=== PATIENT | female | born 1945 | race Caucasian/White ===

== ENCOUNTER → 2016-08-08 | Outpatient (CLI) | payer OTHER ==
[2014-08-13 15:52] VITALS: BP 138/66
--- NOTE | 2016-08-08 14:32 | VAS ---
HISTORY: Dizziness Study: Carotid sonogram Comparison: None Technique: Multiple gonzalez scale and color flow Doppler images of the right and left carotid arterial system were obtained. The vertebral arterial system was evaluated as well. Findings: Normal color flow Doppler is seen throughout the right and left carotid arterial system. No hemodyn amically significant stenosis is seen based on velocity criteria. The right and left vertebral bella tylor demonstrate antegrade flow. IMPRESSION: 1. No hemodynamically significant stenosis. Reported By:
== END ==
LOC: RAD 09:49
PROVIDERS: ATTEND Nurse Practitioner Family
DX: R42 Dizziness and giddiness (principal)
CPT/HCPCS: 93880

== ENCOUNTER → 2017-09-06 | Outpatient (CLI) | payer OTHER ==
[2014-08-13 15:52] VITALS: BP 138/66
--- NOTE | 2017-09-06 12:20 | CT ---
Indication: Preop for ankle and foot surgical reconstruction. Exam: CT scan left foot and ankle without contrast. Technique: Axial spiral images were obtained from the lower leg through the midfoot without contrast and reconstructed at 2 mm intervals with coronal and sagittal MPGR reconstructions. Automated does [email or web address] ntrol was utilized. Findings: There is severe narrowing of the ankle mortise which is more prominent laterally with mild widening of the joint space medially and minimal medial subluxation of the talus. There is mild bony deformity with subchondral areas of sclerosis and lucency along the distal tibia and fibula . There i s partial bony fusion of the tib-fib joint inferiorly. No acute fracture or dislocation is seen. Ther e is a small will corticated calcifications seen just lateral to the dome of the talus measuring up t o 6 mm. There is subchondral lucency and irregularity along the dome of the talus which is more promi nent laterally . There is no acute periosteal reaction. The talus and calcaneus are intact. The visua lized tarsal bones are intact. The bones are osteopenic. The soft tissues are unremarkable. Impression: Mild old posttraumatic deformity of the distal tibia and fibula with extensive subchondral areas of l ucency and sclerosis throughout which is probably due to prior surgery and old healed fractures with no obvious acute bony abnormality seen. Severe osteoarthritic changes along the ankle mortise laterally and mild widening of the joint space medially and mild medial subluxation of dome of the talus suggestive of associated ligamentous instab ility. Subchondral areas of lucency and sclerosis along the dome of the talus which probably represents foundry molder reagan osteonecrosis with no acute fracture. Questionable 6 mm loose body in the joint , chest lateral to the dome of the talus. Severe osteopenia with partial bony fusion of the tib-fib joint inferiorly . Reported By:
--- NOTE | 2017-09-06 13:25 | CT ---
HISTORY: Preop for left foot and ankle reconstruction. Study: CT left foot without contrast Comparison: CT left ankle dated same day. Technique: Multiple axial images of the left foot without administration of IV contrast. Sagittal an d coronal reformats were performed and reviewed. 3D reformats were also performed. Dose reduction bipin hniques including Automated Exposure Control (AEC) and adjustment of mA and kV were utilized. Findings: Diffuse osteopenia. No acute fracture or dislocation. Moderate to severe degenerative changes of the tibial talar joint with associated subchondral cystic formation and intra-articular loose bodies. Pro minent os trigonum. Calcaneal enthesophytes. Mild osteoarthritis of the subtalar joint. Bony fusion i s seen at the tibiofibular joint. The soft tissue structures are unremarkable. IMPRESSION: Chronic findings as above. Reported By:
== END | disposition home or self-care (01) | DRG 554 ==
LOC: RAD 09:47
PROVIDERS: ATTEND Orthopaedic Surgery Foot and Ankle Surgery
DX: M19.172 Post-traumatic osteoarthritis, left ankle and foot (principal); M85.872 Other specified disorders of bone density and structure, left ankle and foot; M19.072 Primary osteoarthritis, left ankle and foot
CPT/HCPCS: 73700

== ENCOUNTER 2019-04-22 15:13 | Inpatient (IN) ==
[2019-04-22 17:28] VITALS: BMI 29.0
[2019-04-22] MEDS ORDERED: TUSSIONEX PENNKINETIC SUSP PO PRN (17:33)
[2019-04-22] MEDS ORDERED: ZOFRAN INJ 4 MG VIAL IVP PRN (17:33)
--- NOTE | 2019-04-22 17:39 | DR.H&P ---
H&P - History & Physical for Day of: H&P Date: 04/22/19 - Chief Complaint Chief Complaint: fever, ccc, sob, wheezing - History of Present Illness History of Present Illness: PTIS 74 WF DIRECT ADMIT FROM DR FARRELL OFFICE WITH BRONCHOPNEUMONIA, FAILED OUTPT THERAPY. PT HAD ROUND OF ZITHROMAX AND LEVAQUIN, 3 IM ROCEPHIN INJECTIONS AND STEROIDS WITHOUT IMPROVEMENT. PT HAS PMH OF OA, GIOVANNI, GERD AND HTN. PT ADMITTED FOR TREATMENT ACUTE RESP ILLNESS. - Past Medical History Past Medical History: Hypertension - Past Surgical History Surgical History: Cholecystectomy, Hysterectomy, Ortho Surgery - Family History Family Medical History: Diabetes Mellitus, Cancer, DC - Social History Does patient currently use any type of tobacco product: Yes Have you used tobacco products in the last 12 months: Yes Type of Tobacco Use: Cigarettes Does any household member use tobacco: No Alcohol Use: Rarely Drug Use: None Prescription drug monitoring program results: PDMP reviewed with concerns identified - Medications Home Medications: No Known Drug Allergies Allergy (Verified 04/22/19 17:24) - Review of Systems Constitutional: Fever, Chills, Weakness, Malaise Eyes: No Symptoms Reported ENT: Nose Congestion Respiratory: Cough, Shortness of Breath, SOB with Excertion, Sputum, Wheezing Cardiovascular: No Symptoms Reported. denies: Edema Gastrointestinal: Nausea, Vomiting Genitourinary: No Symptoms Reported Musculoskeletal: Back Pain Skin: No Symptoms Reported Neurological: No Symptoms Reported, Weakness - Physical Exam Vital Signs: Temperature 97.4 F Pulse Rate [Left Brachial] 81 Respiratory Rate 22 Blood Pressure [Right Arm] 132/61 Blood Pressure [Left Arm] 189/86 Blood Pressure 138/66 O2 Sat by Pulse Oximetry 92 Oriented: Normal Eyes: Normal Ear: Normal Nose: Normal Throat: Normal Respiratory: Diminished Throughout, Rhonchi Throughout Cardiovascular: Normal : Normal Auscultation: Bowel Sounds: Normal Palpation: Normal Tenderness: Normal Skin: Decreased Turgur Musculoskeletal: Back:Thoracic, Back:Lumbar Psychiatric: Anxiety Affect: Anxious Speech Pattern: Clear, Appropriate - Assessment/Plan (1) Bronchopneumonia Status: Acute Plan: ADMIT, PNEUMONIA PROTOCOL. ADMISSION LABS, CBC CMP MAG. FLU AND MYCOPLASMA SWAB. IV LEVAQUIN, BLOOD AND SPUTUM CULTURES ON ADMISSION. GENTLE IV HYDRATION, RESP THERAPY (2) Anxiety Status: Acute (3) Hypertension Status: Chronic - Allergies Allergies/Adverse Reactions: Allergies Allergy/AdvReac Type Severity Reaction Status Date / Time No Known Drug Allergies Allergy Verified 04/22/19 17:24
--- NOTE | 2019-04-22 17:49 | RAD ---
HISTORYCOUGH, POSSIBLE PNEUMONIASTUDYCHEST, PA/LAT ADULTCOMPARISONCoughFINDINGSThe left ventricle is mildly enlarged. The pulmonary vessels are normal. No consolidation or effusion is seen. The bones are intact.IMPRESSIONMild left ventricular enlargement with no acute pulmonary abnormality.Electronically signed by: BO MEHTA (Apr 22, 2019 17:47:39)
[2019-04-22 18:12] LABS: BASOPHILS # (AUTO) 0.1 X10^3/uL (0.0-0.1); BASOPHILS % (AUTO) 0.6 % (0.2-1.0); EOSINOPHILS # (AUTO) 0.2 x10^3/uL (0.0-0.2); EOSINOPHILS % (AUTO) 2.1 % (0.9-2.9); LYMPHOCYTES # (AUTO) 2.8 X10^3/uL (1.3-2.9); LYMPHOCYTES % (AUTO) 25.6 % (21.0-51.0); MEAN CORPUSCULAR HEMOGLOBIN 32.4 pg (27.0-34.0); MEAN CORPUSCULAR HGB CONC 34.1 g/dL (33.0-35.0); MEAN CORPUSCULAR VOLUME 95.1 fL (80.0-100.0); MEAN PLATELET VOLUME 7.4 fL (7.4-11.0); MONOCYTES # (AUTO) 0.8 x10^3/uL (0.3-0.8); MONOCYTES % (AUTO) 7.5 % (0.0-13.0); NEUTROPHILS # (AUTO) 6.9 x10^3/uL (2.2-4.8); NEUTROPHILS % (AUTO) 64.2 % (42.0-75.0); PLATELET COUNT 257 X10^3/uL (150.0-450.0); RED BLOOD COUNT 4.31 X10^6/uL (3.5-5.4); RED CELL DISTRIBUTION WIDTH 12.9 % (11.6-16.5); WHITE BLOOD COUNT 10.8 X10^3/uL (3.6-10.0)
[2019-04-22 18:25] LABS: ALANINE AMINOTRANSFERASE 33 Units/L (12-78); ALBUMIN 3.8 g/dL (3.4-5.0); ALKALINE PHOSPHATASE 54 Units/L (46-116); ASPARTATE AMINO TRANSFERASE 17 Units/L (15-37); BLOOD UREA NITROGEN 27 mg/dL (7-18); CALCIUM 9.1 mg/dL (8.5-10.1); CHLORIDE 100 mmol/L (98-107); COR NA(FOR HYPERGLY) 137 mmol/L (136-145); CREATININE 1.05 mg/dL (0.55-1.02); SODIUM 137 mmol/L (136-145); TOTAL PROTEIN 7.5 g/dL (6.4-8.2); eGFR NON BLACK RACES 55 (>60)
[2019-04-22] MEDS: NS 1000 ML 1,000 ML IV SCH (18:39)
[2019-04-22] MEDS: SOLU-Medrol 125 MG VIAL IVP SCH ×2 (18:44→23:59)
[2019-04-22] MEDS: LEVAQUIN PREMIX IV 500 MG 500 MG/100 ML BAG IV SCH (18:44)
[2019-04-22] MEDS: PROTONIX INJ 40 MG VIAL IVP SCH (18:44)
[2019-04-22 18:55] LABS: MYCOPLASMA PNEUMONIAE IGM AB NEGATIVE (NEGATIVE)
[2019-04-22] MEDS: PULMICORT NEB TX 0.5 MG NEB SCH (20:46)
[2019-04-22] MEDS: DUONEB 0.5 MG/3 MG (3 mL) NEB SCH (20:46)
[2019-04-22] MEDS: MUCOMYST 20% 200 MG/ML NEB SCH (20:46)
[2019-04-22] MEDS: BROVANA IN SCH (21:01)
[2019-04-22] MEDS: XANAX PO SCH (21:24)
[2019-04-22] MEDS: ROBITUSSIN DM PO SCH (21:25)
[2019-04-22] MEDS: TOPROL XL PO SCH (21:25)
[2019-04-22 23:47] LABS: BILIRUBIN,URINE NEGATIVE (NEGATIVE); BLOOD/HEMOGLOBIN,URINE NEGATIVE (NEGATIVE); GLUCOSE, URINE NEGATIVE (NEGATIVE); KETONES,URINE NEGATIVE (NEGATIVE); LEUKOCYTE ESTERASE ,URINE NEGATIVE (NEGATIVE); NITRITES,URINE NEGATIVE (NEGATIVE); PH,URINE 6.5 (5.0 - 8.0); PROTEIN,URINE NEGATIVE (NEGATIVE); UROBILINOGEN,URINE NORMAL (NORMAL)
[2019-04-22 23:53] LABS: APPEARANCE,URINE CLEAR (CLEAR); COLOR,URINE YELLOW (YELLOW)
[2019-04-23] MEDS: DUONEB 0.5 MG/3 MG (3 mL) NEB SCH ×6 (01:01→21:25)
[2019-04-23] MEDS: MUCOMYST 20% 200 MG/ML NEB SCH ×6 (01:01→21:25)
[2019-04-23] MEDS ORDERED: PERCOCET TAB 5/325 MG ONE (04:40)
[2019-04-23] MEDS: PERCOCET TAB 5/325 MG PO PRN ×2 (04:43→14:52)
[2019-04-23 05:39] LABS: BASOPHILS % (AUTO) 0.1 % (0.2-1.0); EOSINOPHILS % (AUTO) 0.2 % (0.9-2.9); HEMATOCRIT 37.6 % (36.0-47.0); LYMPHOCYTES # (AUTO) 1.3 X10^3/uL (1.3-2.9); LYMPHOCYTES % (AUTO) 14.3 % (21.0-51.0); MEAN CORPUSCULAR HEMOGLOBIN 32.9 pg (27.0-34.0); MEAN CORPUSCULAR HGB CONC 34.5 g/dL (33.0-35.0); MEAN CORPUSCULAR VOLUME 95.2 fL (80.0-100.0); MEAN PLATELET VOLUME 7.6 fL (7.4-11.0); MONOCYTES # (AUTO) 0.1 x10^3/uL (0.3-0.8); MONOCYTES % (AUTO) 1.1 % (0.0-13.0); NEUTROPHILS % (AUTO) 84.3 % (42.0-75.0); PLATELET COUNT 233 X10^3/uL (150.0-450.0); RED BLOOD COUNT 3.95 X10^6/uL (3.5-5.4); RED CELL DISTRIBUTION WIDTH 12.9 % (11.6-16.5); WHITE BLOOD COUNT 9.4 X10^3/uL (3.6-10.0)
[2019-04-23 05:54] LABS: ALANINE AMINOTRANSFERASE 30 Units/L (12-78); ALBUMIN 3.5 g/dL (3.4-5.0); ALKALINE PHOSPHATASE 48 Units/L (46-116); ASPARTATE AMINO TRANSFERASE 15 Units/L (15-37); BLOOD UREA NITROGEN 26 mg/dL (7-18); CALCIUM 8.3 mg/dL (8.5-10.1); CARBON DIOXIDE 22.8 mmol/L (21-32); CHLORIDE 99 mmol/L (98-107); COR NA(FOR HYPERGLY) 136 mmol/L (136-145); CREATININE 1.05 mg/dL (0.55-1.02); SODIUM 134 mmol/L (136-145); eGFR NON BLACK RACES 55 (>60)
[2019-04-23] MEDS: SOLU-Medrol 125 MG VIAL IVP SCH (05:54)
[2019-04-23] MEDS: NS 1000 ML 1,000 ML IV SCH ×2 (08:16→22:45)
[2019-04-23] MEDS: ROBITUSSIN DM PO SCH ×4 (08:17→20:44)
[2019-04-23] MEDS: LEVAQUIN PREMIX IV 500 MG 500 MG/100 ML BAG IV SCH (08:17)
[2019-04-23] MEDS: PROTONIX INJ 40 MG VIAL IVP SCH (08:17)
[2019-04-23] MEDS ORDERED: APRESOLINE INJ 20 MG VIAL IVP PRN (08:18)
[2019-04-23] MEDS: BROVANA IN SCH ×2 (09:20→21:20)
[2019-04-23] MEDS: PULMICORT NEB TX 0.5 MG NEB SCH ×2 (09:23→21:25)
[2019-04-23] MEDS: TOPROL XL PO SCH (20:44)
[2019-04-23] MEDS: XANAX PO SCH (20:46)
[2019-04-24] MEDS: DUONEB 0.5 MG/3 MG (3 mL) NEB SCH ×6 (00:55→21:13)
[2019-04-24] MEDS: MUCOMYST 20% 200 MG/ML NEB SCH ×6 (01:02→21:14)
[2019-04-24 06:21] LABS: BASOPHILS % (AUTO) 0.2 % (0.2-1.0); EOSINOPHILS % (AUTO) 0.1 % (0.9-2.9); HEMATOCRIT 32.8 % (36.0-47.0); HEMOGLOBIN 11.3 g/dL (12.0-16.0); LYMPHOCYTES # (AUTO) 1.6 X10^3/uL (1.3-2.9); LYMPHOCYTES % (AUTO) 12.9 % (21.0-51.0); MEAN CORPUSCULAR HEMOGLOBIN 32.6 pg (27.0-34.0); MEAN CORPUSCULAR HGB CONC 34.4 g/dL (33.0-35.0); MEAN CORPUSCULAR VOLUME 94.6 fL (80.0-100.0); MEAN PLATELET VOLUME 7.2 fL (7.4-11.0); MONOCYTES # (AUTO) 0.9 x10^3/uL (0.3-0.8); MONOCYTES % (AUTO) 7.2 % (0.0-13.0); NEUTROPHILS # (AUTO) 9.7 x10^3/uL (2.2-4.8); NEUTROPHILS % (AUTO) 79.6 % (42.0-75.0); PLATELET COUNT 226 X10^3/uL (150.0-450.0); RED BLOOD COUNT 3.47 X10^6/uL (3.5-5.4); RED CELL DISTRIBUTION WIDTH 12.8 % (11.6-16.5); WHITE BLOOD COUNT 12.1 X10^3/uL (3.6-10.0)
[2019-04-24 06:40] LABS: ALANINE AMINOTRANSFERASE 22 Units/L (12-78); ALKALINE PHOSPHATASE 40 Units/L (46-116); ASPARTATE AMINO TRANSFERASE 10 Units/L (15-37); BLOOD UREA NITROGEN 21 mg/dL (7-18); CALCIUM 8.1 mg/dL (8.5-10.1); CARBON DIOXIDE 24.7 mmol/L (21-32); CHLORIDE 105 mmol/L (98-107); COR CA(FOR HYPOALB) 8.9 mg/dL (8.5-10.1); COR NA(FOR HYPERGLY) 139 mmol/L (136-145); CREATININE 0.91 mg/dL (0.55-1.02); SODIUM 138 mmol/L (136-145); TOTAL PROTEIN 6.1 g/dL (6.4-8.2); eGFR NON BLACK RACES > 60 (>60)
[2019-04-24] MEDS: BROVANA IN SCH ×2 (08:57→21:05)
[2019-04-24] MEDS: PULMICORT NEB TX 0.5 MG NEB SCH ×2 (09:04→21:14)
[2019-04-24] MEDS: LEVAQUIN PREMIX IV 500 MG 500 MG/100 ML BAG IV SCH (09:26)
[2019-04-24] MEDS: ROBITUSSIN DM PO SCH ×4 (09:26→20:36)
[2019-04-24] MEDS: PROTONIX INJ 40 MG VIAL IVP SCH (09:26)
[2019-04-24] MEDS: NS 1000 ML 1,000 ML IV SCH ×3 (09:28→23:05)
--- NOTE | 2019-04-24 17:03 | RAD ---
HISTORYPNEUMONIA, COUGHSTUDYCHEST, PA/LAT ADULTCOMPARISONTwo-view chest April 22, 2019.FINDINGSThe trachea is midline. The cardiac silhouette is mildly enlarged.. The lungs are clear without focal infiltrate or effusion. The bony thorax is unremarkable. When compared to prior film April 22, 2019 there is no significant interval change.IMPRESSIONNo acute cardiopulmonary disease.Electronically signed by: STEVE ALCANTAR (Apr 24, 2019 17:02:24)
[2019-04-24] MEDS: TOPROL XL PO SCH (20:37)
[2019-04-24] MEDS: XANAX PO SCH (20:37)
[2019-04-25] MEDS: NS 1000 ML 1,000 ML IV SCH (02:01)
[2019-04-25 06:10] LABS: BASOPHILS # (AUTO) 0.1 X10^3/uL (0.0-0.1); BASOPHILS % (AUTO) 0.5 % (0.2-1.0); EOSINOPHILS # (AUTO) 0.1 x10^3/uL (0.0-0.2); EOSINOPHILS % (AUTO) 0.7 % (0.9-2.9); HEMATOCRIT 33.2 % (36.0-47.0); HEMOGLOBIN 11.4 g/dL (12.0-16.0); LYMPHOCYTES # (AUTO) 1.7 X10^3/uL (1.3-2.9); LYMPHOCYTES % (AUTO) 16.9 % (21.0-51.0); MEAN CORPUSCULAR HEMOGLOBIN 32.5 pg (27.0-34.0); MEAN CORPUSCULAR HGB CONC 34.3 g/dL (33.0-35.0); MEAN CORPUSCULAR VOLUME 94.9 fL (80.0-100.0); MEAN PLATELET VOLUME 6.9 fL (7.4-11.0); MONOCYTES # (AUTO) 0.8 x10^3/uL (0.3-0.8); MONOCYTES % (AUTO) 7.3 % (0.0-13.0); NEUTROPHILS # (AUTO) 7.7 x10^3/uL (2.2-4.8); NEUTROPHILS % (AUTO) 74.6 % (42.0-75.0); PLATELET COUNT 238 X10^3/uL (150.0-450.0); RED CELL DISTRIBUTION WIDTH 13.2 % (11.6-16.5); WHITE BLOOD COUNT 10.3 X10^3/uL (3.6-10.0)
[2019-04-25 06:22] LABS: ALANINE AMINOTRANSFERASE 21 Units/L (12-78); ALBUMIN 2.9 g/dL (3.4-5.0); ALKALINE PHOSPHATASE 42 Units/L (46-116); ASPARTATE AMINO TRANSFERASE 12 Units/L (15-37); BLOOD UREA NITROGEN 17 mg/dL (7-18); CALCIUM 7.9 mg/dL (8.5-10.1); CARBON DIOXIDE 25.1 mmol/L (21-32); CHLORIDE 107 mmol/L (98-107); COR CA(FOR HYPOALB) 8.8 mg/dL (8.5-10.1); CREATININE 0.86 mg/dL (0.55-1.02); SODIUM 140 mmol/L (136-145); TOTAL PROTEIN 5.9 g/dL (6.4-8.2); eGFR NON BLACK RACES > 60 (>60)
[2019-04-25] MEDS: ROBITUSSIN DM PO SCH (08:06)
[2019-04-25] MEDS: PROTONIX INJ 40 MG VIAL IVP SCH (08:08)
[2019-04-25] MEDS: LEVAQUIN PREMIX IV 500 MG 500 MG/100 ML BAG IV SCH (08:08)
[2019-04-25 08:54] VITALS: BP 171/71
[2019-04-25] MEDS ORDERED: DUONEB 0.5 MG/3 MG (3 mL) NEB SCH (09:00)
[2019-04-25] MEDS: PULMICORT NEB TX 0.5 MG NEB SCH (09:02)
[2019-04-25] MEDS: BROVANA IN SCH (09:18)
== END 2019-04-25 11:10 | disposition home or self-care (01) | DRG 195 ==
LOC: MED/SURG 15:15
PROVIDERS: ADMIT Internal Medicine; ATTEND Internal Medicine
DX: J18.0 Bronchopneumonia, unspecified organism; M19.90 Unspecified osteoarthritis, unspecified site; F41.8 Other specified anxiety disorders; I10 Essential (primary) hypertension
CPT/HCPCS: 36415; 71020; 71046; 80053; 81003; 85025; 86738; 87040; 87070; 87205; 87502; 94640; 94669; 94760; A4222; C9113; J0360; J1956; J2930; J7030; J7620; J7626

== ENCOUNTER 2022-05-09 09:45 | Inpatient (IN) ==
[2022-05-09] MEDS ORDERED: ZOFRAN INJ 4 MG VIAL IVP PRN (11:40)
[2022-05-09] MEDS ORDERED: TUSSIONEX PENNKINETIC SUSP PO PRN (11:40)
[2022-05-09 12:06] LABS: BASOPHILS # (AUTO) 0.1 X10^3/uL (0.0-0.1); EOSINOPHILS # (AUTO) 0.3 x10^3/uL (0.0-0.2); EOSINOPHILS % (AUTO) 2.8 % (0.9-2.9); HEMATOCRIT 39.3 % (36.0-47.0); HEMOGLOBIN 13.4 g/dL (12.0-16.0); LYMPHOCYTES # (AUTO) 2.3 X10^3/uL (1.3-2.9); LYMPHOCYTES % (AUTO) 20.5 % (21.0-51.0); MEAN CORPUSCULAR HEMOGLOBIN 31.5 pg (27.0-34.0); MEAN CORPUSCULAR HGB CONC 34.2 g/dL (33.0-35.0); MEAN CORPUSCULAR VOLUME 91.9 fL (80.0-100.0); MEAN PLATELET VOLUME 6.7 fL (7.4-11.0); MONOCYTES # (AUTO) 0.8 x10^3/uL (0.3-0.8); MONOCYTES % (AUTO) 7.3 % (0.0-13.0); NEUTROPHILS # (AUTO) 7.6 x10^3/uL (2.2-4.8); NEUTROPHILS % (AUTO) 68.4 % (42.0-75.0); RED BLOOD COUNT 4.27 X10^6/uL (3.5-5.4); RED CELL DISTRIBUTION WIDTH 12.9 % (11.6-16.5); WHITE BLOOD COUNT 11.1 X10^3/uL (3.6-10.0)
[2022-05-09 12:21] LABS: ALANINE AMINOTRANSFERASE 23 Units/L (12-78); ALBUMIN 3.9 g/dL (3.4-5.0); ALKALINE PHOSPHATASE 63 Units/L (46-116); ASPARTATE AMINO TRANSFERASE 15 Units/L (15-37); BLOOD UREA NITROGEN 36 mg/dL (7-18); CALCIUM 8.8 mg/dL (8.5-10.1); CARBON DIOXIDE 28.8 mmol/L (21-32); CHLORIDE 94 mmol/L (98-107); CREATININE 1.01 mg/dL (0.55-1.02); MAGNESIUM 1.9 mg/dL (2.0-2.9); SODIUM 128 mmol/L (136-145); TOTAL PROTEIN 7.3 g/dL (6.4-8.2); eGFR NON BLACK RACES 57 (>60)
[2022-05-09] MEDS: ROBITUSSIN DM PO SCH ×3 (12:30→20:36)
[2022-05-09] MEDS: SOLU-Medrol 125 MG VIAL IVP SCH ×3 (12:39→22:01)
[2022-05-09] MEDS: NS 1,000 ML IV 1,000 ML IV SCH (12:39)
[2022-05-09] MEDS: ZITHROMAX INJ 500 MG VIAL 500 MG in NS 250 ML IV 250 ML IV SCH (12:40)
[2022-05-09] MEDS: PROTONIX INJ 40 MG VIAL IVP SCH (12:50)
[2022-05-09 13:57] VITALS: BMI 27.7
--- NOTE | 2022-05-09 15:08 | RAD ---
EXAM: CHEST X-RAYHISTORY: Cough. Shortness of breath. Bronchopneumonia.TECHNIQUE: PA and lateral chest x-ray.COMPARISON: CXR dated July 31, 2020.FINDINGS:There is aortic atherosclerosis. There is mild cardiomegaly (new finding). The lung marie and costophrenic angles are clear. There is no acute parenchymal infiltrate, pleural effusion, or pneumothorax seen. Multilevel DDD is again seen throughout the middle and distal thoracic spine. The visualized bony structures are otherwise within normal limits.IMPRESSION:1. No evidence for acute cardiopulmonary disease seen.2. Mild cardiomegaly (new finding).Electronically signed by: Vanessa Beard (May 09, 2022 15:07:09)
[2022-05-09 15:29] LABS: BILIRUBIN,URINE NEGATIVE (NEGATIVE); BLOOD/HEMOGLOBIN,URINE NEGATIVE (NEGATIVE); GLUCOSE, URINE NEGATIVE (NEGATIVE); KETONES,URINE NEGATIVE (NEGATIVE); LEUKOCYTE ESTERASE ,URINE NEGATIVE (NEGATIVE); NITRITES,URINE NEGATIVE (NEGATIVE); PROTEIN,URINE NEGATIVE (NEGATIVE); UROBILINOGEN,URINE NORMAL (NORMAL)
[2022-05-09 15:31] LABS: APPEARANCE,URINE CLEAR (CLEAR); COLOR,URINE YELLOW (YELLOW)
--- NOTE | 2022-05-09 15:37 | EKG ---
Test Reason : sob Blood Pressure : */* mmHG Vent. Rate : 71 BPM Atrial Rate : 71 BPM P-R Int : 192 ms QRS Dur : 98 ms QT Int : 420 ms P-R-T Axes : 59 21 56 degrees QTc Int : 456 ms Normal sinus rhythm T wave abnormality, consider anterior ischemia Abnormal ECG No previous ECGs available Confirmed by Jack William ([id number]) on 05/10/2022 8:03:18 AM Referred By: Confirmed By: Jack William
[2022-05-09 15:44] LABS: ABG ALLEN TEST POS; ABG BASE EXCESS -0.4 mmol/L (-2.0-2.0); ABG HCO3 24.8 mmol/L (22-26)
[2022-05-09] MEDS ORDERED: ANTIVERT TAB 25 MG PO PRN (18:06)
[2022-05-09] MEDS ORDERED: NEURONTIN CAP 100 MG PO PRN (18:06)
--- NOTE | 2022-05-09 18:10 | DR.H&P ---
H&P - History & Physical for Day of: H&P Date: 05/09/22 - Chief Complaint Chief Complaint: CCC, SOB, FATIGUE - History of Present Illness History of Present Illness: PT IS 77 WF, DIRECT ADMIT FROM DR FARRELL OFFICE WITH FAILED OUTPT TREATMENT OF BRONCHOPNEUMONIA. PT HAS TAKEN 2 ROUNDS OF PO ANTIBIOTICS OF ZITHROMAX AND DOXYCYCLINE, HAD 5 IM ROCEPHIN INJECTIONS AND PO AND IM STEROIDS WITHOUT RESOLUTION OF ILLNESS. PT REPORTS CCC WITH PRODUCTIVE COUGH, FATIGUE AND SINUS CONGESTION AND BEEN GOING ON FOR ~3-4 WEEKS. PT HAS PMH OF HTN, OA, GIOVANNI AND GERD. PT ADMITTED FOR TREATMENT OF ACUTE ILLNESS. - Past Medical History Past Medical History: Anxiety, Arthritis, GERD, Hypertension - Past Surgical History Surgical History: Cholecystectomy, Hysterectomy - Family History Family Medical History: Sudden Cardiac - Social History Does patient currently use any type of tobacco product: Yes Have you used tobacco products in the last 12 months: Yes Type of Tobacco Use: Cigarettes How many years tobacco product used: 20 Does any household member use tobacco: Yes Alcohol Use: None Drug Use: None - Medications Home Medications: No Known Drug Allergies Allergy (Verified 04/22/19 17:24) CONTINUE taking the following medications amitriptyline 10 mg tablet 10 mg PO HS 05/09/22 [History] amlodipine 5 mg tablet 5 mg PO HS 05/09/22 [History] cetirizine 10 mg tablet (Zyrtec) 10 mg PO DAILY 05/09/22 [History] - Review of Systems Constitutional: Weakness, Malaise Eyes: No Symptoms Reported ENT: Nose Congestion Respiratory: Cough, Shortness of Breath, Sputum, Wheezing Cardiovascular: No Symptoms Reported Gastrointestinal: Nausea Genitourinary: No Symptoms Reported Musculoskeletal: Back Pain, Leg Pain Skin: No Symptoms Reported Neurological: Weakness - Physical Exam Vital Signs: Temperature 98.2 F Pulse Rate [Left] 70 Pulse Rate 72 Respiratory Rate 18 Blood Pressure [Right Arm] 152/67 Blood Pressure [Left Arm] 176/82 Blood Pressure 184/76 O2 Sat by Pulse Oximetry 95 Oriented: Normal, Person Ear: Normal Nose: Discharge Throat: Dry Respiratory: Wheezes Throughout, RLL Diminished, LLL Diminished Cardiovascular: Normal, Edema (TRACE LLE EDEMA) : Normal Auscultation: Bowel Sounds: Normal Palpation: Normal Tenderness: Normal Skin: Decreased Turgur Musculoskeletal: Left, Ankle, Foot, Back:Thoracic, Back:Lumbar Psychiatric: Anxiety Affect: Anxious Speech Pattern: Clear, Appropriate - Assessment/Plan (1) Bronchopneumonia Status: Acute Plan: ADMIT, PNEUMONIA PROTOCOL, CXR AND RESP CONSULT ON ADMISSION. IV ATBX, GENTLE IV HYDRATION. BP CONTROL, SPUTUM CULTURE ON ADMISSION. RESP THERAPY, DDIMER ON ADMISSION, ROOM AIR ABG. LOVENOX PROPHYLAXIS (2) Hypertension Status: Chronic (3) Anxiety Status: Acute - Allergies Allergies/Adverse Reactions: Allergies Allergy/AdvReac Type Severity Reaction Status Date / Time No Known Drug Allergies Allergy Verified 04/22/19 17:24
[2022-05-09] MEDS ORDERED: PERCOCET TAB 5/325 MG PO PRN (18:42)
[2022-05-09] MEDS ORDERED: K-DUR TAB 20 MEQ PO PRN (19:04)
[2022-05-09] MEDS ORDERED: POTASSIUM CHL 40 MEQ/NS 0.45% 500 ML IV PRN (19:04)
[2022-05-09] MEDS ORDERED: POTASSIUM CHLORIDE LIQ 20 MEQ UDC PO PRN (19:04)
[2022-05-09] MEDS ORDERED: POTASSIUM CHL 60 MEQ/NS 0.45% 500 ML IV PRN (19:04)
[2022-05-09] MEDS ORDERED: MICRO K EXTEN CAP 10 MEQ PO PRN (19:04)
[2022-05-09] MEDS ORDERED: K-RIDER 10 MEQ/NS 100 ML 10 MEQ/100 ML BAG IV PRN (19:04)
[2022-05-09] MEDS ORDERED: KLOR-CON PO PRN (19:04)
[2022-05-09] MEDS ORDERED: TOPROL XL PO ONE (20:03)
[2022-05-09] MEDS: NORVASC TAB 5 MG PO SCH (20:35)
[2022-05-09] MEDS: ELAVIL PO SCH (20:35)
[2022-05-09] MEDS: XANAX PO SCH (20:36)
[2022-05-09] MEDS: TOPROL XL PO SCH (20:36)
[2022-05-09] MEDS: LOVENOX INJ 40 MG SYR SC SCH (20:37)
[2022-05-09] MEDS: DUONEB 0.5 MG/3 MG (3 mL) NEB SCH (21:00)
[2022-05-09] MEDS: PULMICORT NEB TX 0.5 MG NEB SCH (21:00)
[2022-05-09] MEDS: ZESTRIL TAB 10 MG PO SCH (21:00)
[2022-05-09] MEDS: MAGNESIUM SULFATE 1 GRAM/100 mL PREMIX 1 G/100 ML BAG IV PRN ×2 (22:04→23:06)
[2022-05-10] MEDS: NS 1,000 ML IV 1,000 ML IV SCH ×3 (02:37→22:54)
[2022-05-10] MEDS: SOLU-Medrol 125 MG VIAL IVP SCH (05:08)
--- NOTE | 2022-05-10 07:27 | CT ---
HISTORYPulmonary embolusSTUDYCTA chest with contrast for pulmonary embolusTechnique: Axial post-contrast images with coronal, sagittal, and 3 dimensional maximum intensity projection images obtained and evaluated. Dose reduction procedures were used with mA/kv adjusted for body size.COMPARISONNoneFINDINGSThere is no evidence for acute pulmonary thromboembolic disease. Examination of the mediastinum demonstrated no evidence for mediastinal masses, enlarged mediastinal or enlarged hilar adenopathy or significant aortic abnormality. The heart is enlarged. No pleural effusions are identified. No chest wall or axillary abnormality is identified. Those portions of the upper abdominal organs visualized were within normal limits to the limitations of early arterial injection timing. Examination of the lung marie demonstrated no significant nodules, masses, alveolar infiltrates, areas of consolidation, peribronchial thickening, or bronchiectasis.IMPRESSIONNo evidence for acute pulmonary thromboembolic diseaseCardiomegaly without congestive heart failureNo definite infiltratesElectronically signed by: ORTIZ ROTHMAN (May 10, 2022 07:25:54)
[2022-05-10] MEDS: LOVENOX INJ 40 MG SYR SC SCH (08:09)
[2022-05-10] MEDS: ZESTRIL TAB 10 MG PO SCH ×2 (08:09→20:23)
[2022-05-10] MEDS: XANAX PO SCH ×2 (08:09→20:20)
[2022-05-10] MEDS: ROBITUSSIN DM PO SCH ×4 (08:09→20:20)
[2022-05-10] MEDS: PROTONIX INJ 40 MG VIAL IVP SCH (08:10)
[2022-05-10] MEDS: ZITHROMAX INJ 500 MG VIAL 500 MG in NS 250 ML IV 250 ML IV SCH (08:11)
[2022-05-10 08:14] LABS: BASOPHILS # (AUTO) 0.1 X10^3/uL (0.0-0.1); HEMATOCRIT 37.2 % (36.0-47.0); HEMOGLOBIN 12.8 g/dL (12.0-16.0); LYMPHOCYTES % (AUTO) 9.7 % (21.0-51.0); MEAN CORPUSCULAR HEMOGLOBIN 31.7 pg (27.0-34.0); MEAN CORPUSCULAR HGB CONC 34.3 g/dL (33.0-35.0); MEAN CORPUSCULAR VOLUME 92.4 fL (80.0-100.0); MONOCYTES # (AUTO) 0.2 x10^3/uL (0.3-0.8); MONOCYTES % (AUTO) 1.6 % (0.0-13.0); NEUTROPHILS # (AUTO) 8.8 x10^3/uL (2.2-4.8); NEUTROPHILS % (AUTO) 87.7 % (42.0-75.0); RED BLOOD COUNT 4.02 X10^6/uL (3.5-5.4); RED CELL DISTRIBUTION WIDTH 13.1 % (11.6-16.5); WHITE BLOOD COUNT 10.1 X10^3/uL (3.6-10.0)
[2022-05-10 08:23] LABS: ALANINE AMINOTRANSFERASE 20 Units/L (12-78); ALBUMIN 3.5 g/dL (3.4-5.0); ALKALINE PHOSPHATASE 57 Units/L (46-116); ASPARTATE AMINO TRANSFERASE 13 Units/L (15-37); BLOOD UREA NITROGEN 25 mg/dL (7-18); CALCIUM 8.4 mg/dL (8.5-10.1); CARBON DIOXIDE 25.5 mmol/L (21-32); CHLORIDE 100 mmol/L (98-107); COR NA(FOR HYPERGLY) 134 mmol/L (136-145); CREATININE 1.52 mg/dL (0.55-1.02); SODIUM 133 mmol/L (136-145); TOTAL PROTEIN 6.9 g/dL (6.4-8.2); eGFR NON BLACK RACES 35 (>60)
[2022-05-10] MEDS: DUONEB 0.5 MG/3 MG (3 mL) NEB SCH ×4 (08:50→20:10)
[2022-05-10] MEDS: PULMICORT NEB TX 0.5 MG NEB SCH ×2 (08:50→20:10)
[2022-05-10] MEDS ORDERED: SOLU-Medrol 40 MG VIAL IVP ONE (14:00)
--- NOTE | 2022-05-10 15:40 | VAS ---
LOWER EXT VENOUS, BILATERALHISTORY: Elevated D-dimerComparison:NoneTECHNIQUE: Multiple gonzalez scale and color flow Doppler images of the deep venous system were obtained of the right and left lower extremity.FINDINGS:The deep venous system of the right and left lower extremities were evaluated from the level of the common femoral vein through the popliteal vein. Normal color flow and augmentation can be observed .In addition, normal compression is seen throughout the deep venous system. Cyst in the left popliteal fossa measuring 3.8 cm.IMPRESSION:1.Negative for DVT.Electronically signed by: JUAN KAUR (May 10, 2022 15:38:53)
[2022-05-10] MEDS ORDERED: TOPROL XL PO ONE (20:03)
[2022-05-10] MEDS: ELAVIL PO SCH (20:20)
[2022-05-10] MEDS: NORVASC TAB 5 MG PO SCH (20:20)
[2022-05-10] MEDS: TOPROL XL PO SCH (20:20)
[2022-05-11] MEDS: NS 1,000 ML IV 1,000 ML IV SCH ×3 (05:08→19:52)
[2022-05-11 06:38] LABS: BASOPHILS % (AUTO) 0.1 % (0.2-1.0); HEMOGLOBIN 10.9 g/dL (12.0-16.0); LYMPHOCYTES # (AUTO) 2.1 X10^3/uL (1.3-2.9); LYMPHOCYTES % (AUTO) 15.1 % (21.0-51.0); MEAN CORPUSCULAR HEMOGLOBIN 31.6 pg (27.0-34.0); MEAN CORPUSCULAR HGB CONC 33.9 g/dL (33.0-35.0); MEAN CORPUSCULAR VOLUME 93.2 fL (80.0-100.0); MEAN PLATELET VOLUME 6.9 fL (7.4-11.0); MONOCYTES # (AUTO) 0.6 x10^3/uL (0.3-0.8); MONOCYTES % (AUTO) 4.3 % (0.0-13.0); NEUTROPHILS # (AUTO) 11.3 x10^3/uL (2.2-4.8); NEUTROPHILS % (AUTO) 80.5 % (42.0-75.0); RED BLOOD COUNT 3.44 X10^6/uL (3.5-5.4)
[2022-05-11 06:58] LABS: ALANINE AMINOTRANSFERASE 18 Units/L (12-78); ALKALINE PHOSPHATASE 50 Units/L (46-116); ASPARTATE AMINO TRANSFERASE 15 Units/L (15-37); BLOOD UREA NITROGEN 22 mg/dL (7-18); CALCIUM 8.2 mg/dL (8.5-10.1); CARBON DIOXIDE 24.8 mmol/L (21-32); CHLORIDE 104 mmol/L (98-107); COR NA(FOR HYPERGLY) 136 mmol/L (136-145); CREATININE 0.83 mg/dL (0.55-1.02); SODIUM 135 mmol/L (136-145); TOTAL PROTEIN 5.7 g/dL (6.4-8.2); eGFR NON BLACK RACES > 60 (>60)
[2022-05-11] MEDS: DUONEB 0.5 MG/3 MG (3 mL) NEB SCH ×4 (08:34→21:50)
[2022-05-11] MEDS: PULMICORT NEB TX 0.5 MG NEB SCH ×3 (08:34→21:52)
[2022-05-11] MEDS: ZITHROMAX INJ 500 MG VIAL 500 MG in NS 250 ML IV 250 ML IV SCH (08:55)
[2022-05-11] MEDS: XANAX PO SCH ×2 (08:56→20:00)
[2022-05-11] MEDS: PROTONIX INJ 40 MG VIAL IVP SCH (08:56)
[2022-05-11] MEDS: LOVENOX INJ 40 MG SYR SC SCH (08:57)
[2022-05-11] MEDS: ZESTRIL TAB 10 MG PO SCH ×2 (08:57→20:01)
[2022-05-11] MEDS: ROBITUSSIN DM PO SCH ×4 (08:57→20:00)
--- NOTE | 2022-05-11 09:49 | RAD ---
HISTORYBronchitisSTUDYPortable AP chestCOMPARISONJan2022FINDINGSHeart size remains borderline enlarged with clear lungs and pleural spaces. There is no evidence for CHF or pneumonia.IMPRESSIONNo acute chest findings.Electronically signed by: KEVEN COOPER (May 11, 2022 09:48:41)
--- NOTE | 2022-05-11 10:25 | CT ---
HISTORYheadache, htn, vertigoSTUDYBRAIN W/O CONCOMPARISONHead CT 12/07/2020TECHNIQUEMultiple CT axial images of the head were obtained without IV contrast. Coronal and sagittal images were reconstructed. Dose reduction techniques included Automated Exposure Control (AEC) and adjustment of mA and kV.FINDINGSOnly very minimal age related changes are present. Focal areas of low density are seen in the anterior basal ganglia unchanged from prior study representing old lacunar infarcts. Old posterior left frontal cortical infarct is small.Other gonzalez and white matter have normal differentiation.There is no mass, shift, or hemorrhage. Cerebellar tonsils are at an appropriate level. No fluid in the sinuses or mucosal thickening to suggest sinusitis. There is no mastoid effusion.IMPRESSION1. No acute findingElectronically signed by: Chapincito Shannon (May 11, 2022 10:23:23)
--- NOTE | 2022-05-11 13:46 | VAS ---
HISTORY: Concern for carotid artery stenosis. Headache and hypertension. Vertigo.EXAM: BILATERAL DOPPLER CAROTID ULTRASOUND EXAMTechnique: Multiple gonzalez scale and color flow Doppler images of the right and left carotid arterial system were obtained.The vertebral arterial system was evaluated as well.Findings:Nonocclusive color flow Doppler is seen throughout the right and left carotid arterial system. No hemodynamically significant carotid arterial stenosis is seen based on velocity criteria. There is [id number] bilateral carotid atherosclerosis and mixed plaque formation of the bilateral carotid bulbs and ICAs with associated intimal thickening but without evidence for high-grade stenosis (>70%) or occlusion of the carotid arteries. The right and left vertebral artery demonstrate antegrade flow.IMPRESSION:Rlpz-za-kvrmujby bilateral carotid atherosclerosis and mixed plaque formation of the bilateral carotid bulbs and [in both] ICAs with [id number] associated carotid intimal thickening but without evidence for high-grade stenosis or occlusion of the carotid arteries, based on Doppler velocity criteria.Appropriate, antegrade, vertebral arterial flow.Peak right ICA velocity: 69 centimeter/seconds.Peak right CCA velocity: 57 centimeter/seconds.Peak left ICA velocity: 87 centimeter/seconds.Peak left CCA velocity: 89 centimeter/seconds.Right ICA to CCA ratio: 0.98.Left ICA to CCA ratio: 1.7.Electronically signed by: CARYL PRUETT III (May 11, 2022 13:44:55)
[2022-05-11] MEDS: LEVAQUIN PREMIX IV 500 MG 500 MG/100 ML BAG IV SCH (14:24)
--- NOTE | 2022-05-11 18:32 | PCM.PROG ---
Progress Note - Progress Note for Day of Date of Exam: 05/11/22 - Subjective Subjective: The patient is a 77-year-old white female who failed outpatient treatment for bronchopneumonia. Since admission, the patient has been on IV antibiotics, corticosteroids, respiratory therapy, and supplemental oxygen. She was noted to be hypoxic on her ABG with her PO2 at 61. She has been on dixon pplemental oxygen with 2 liters nasal cannula and is saturating well around 97%. She had an elevated DDimer on admission so we obtained a CTA of her chest to rule out a pulmonary embolism and it was negative for a pulmonary embolism. She did also have lower extremity venous dopplers. She has some chronic left lower extremity edema which is worse on the left than right but there was no sign of any deep vein thrombosis, which were negative for DVT. We have her on Lovenox, deep vein thrombosis prophylaxis since admission. Pt has complaints of transient dizzy spells not resolved with antivert. Pt also co increased SOB on exertion. Pt reports previously seen [facility]. - Past Medical Family Social History Past Med/Fam/Surg Hx: No changes since H&P Allergies: Allergies No Known Drug Allergies Allergy (Verified 04/22/19 17:24) - Review of Systems ROS: No change since H&P - Vital Signs and I&O's Vital Signs: Temperature 98.4 F Pulse Rate [Right Brachial] 70 Pulse Rate [Left] 63 Pulse Rate 68 Respiratory Rate 20 Blood Pressure [Right Arm] 155/67 Blood Pressure [Left Arm] 176/82 Blood Pressure 184/76 O2 Sat by Pulse Oximetry 95 Intake and Output: Intake & Output 05/09/22 05/10/22 05/11/22 05/12/22 11:59 11:59 11:59 11:59 Intake Total 1760 / 1760 4140 / 4140 1545 / 1545 Balance 1760 / 1760 4140 / 4140 1545 / 1545 - Physical Exam Oriented: Normal, Person Ear: Normal Nose: Discharge Throat: Dry Respiratory: Diminished, Wheezes Cardiovascular: Normal, Edema (TRACE LLE EDEMA) : Normal Auscultation: Bowel Sounds: Normal Tenderness: Normal Skin: Decreased Turgur Musculoskeletal: Left, Ankle, Foot, Back:Thoracic, Back:Lumbar Psychiatric: Anxiety Affect: Anxious Speech Pattern: Clear, Appropriate - Laboratory and Diagnostics Result Diagrams: 05/11/22 05:04 05/11/22 05:04 Labs: 05/09/22 17:53 Sputum - Expectorated Sputum Sputum Culture - Final Enterobacter Cloacae 05/09/22 17:53 Sputum - Expectorated Sputum - Final Laboratory WBC 14.0 X10^3/uL (3.6-10.0) H 05/11/22 05:04 RBC 3.44 X10^6/uL (3.5-5.4) L 05/11/22 05:04 Hgb 10.9 g/dL (12.0-16.0) L 05/11/22 05:04 Hct 32.0 % (36.0-47.0) L 05/11/22 05:04 MCV 93.2 fL (80.0-100.0) 05/11/22 05:04 MCH 31.6 pg (27.0-34.0) 05/11/22 05:04 MCHC 33.9 g/dL (33.0-35.0) 05/11/22 05:04 RDW 13.0 % (11.6-16.5) 05/11/22 05:04 Plt Count 211 X10^3/uL (150.0-450.0) 05/11/22 05:04 MPV 6.9 fL (7.4-11.0) L 05/11/22 05:04 Neut % (Auto) 80.5 % (42.0-75.0) H 05/11/22 05:04 Lymph % (Auto) 15.1 % (21.0-51.0) L 05/11/22 05:04 [place] % (Auto) 4.3 % (0.0-13.0) 05/11/22 05:04 Eos % (Auto) 0.0 % (0.9-2.9) L 05/11/22 05:04 Baso % (Auto) 0.1 % (0.2-1.0) L 05/11/22 05:04 Neut # (Auto) 11.3 x10^3/uL (2.2-4.8) H 05/11/22 05:04 Lymph # (Auto) 2.1 X10^3/uL (1.3-2.9) 05/11/22 05:04 [place] # (Auto) 0.6 x10^3/uL (0.3-0.8) 05/11/22 05:04 Eos # (Auto) 0.0 x10^3/uL (0.0-0.2) 05/11/22 05:04 Baso # (Auto) 0.0 X10^3/uL (0.0-0.1) 05/11/22 05:04 Absolute Nucleated RBC 0.0 /100WBC 05/11/22 05:04 D-Dimer 2.41 ug/ml (0.0-0.57) H 05/11/22 05:04 Sample Site Rra 05/09/22 15:40 ABG pH 7.380 (7.35-7.45) 05/09/22 15:40 ABG pCO2 42.0 mmHg (35.0-45.0) 05/09/22 15:40 ABG pO2 61.0 mmHg (80.0-100.0) L 05/09/22 15:40 ABG HCO3 24.8 mmol/L (22-26) 05/09/22 15:40 ABG O2 Saturation 90.0 % (90-100) 05/09/22 15:40 ABG Base Excess -0.4 mmol/L (-2.0-2.0) 05/09/22 15:40 Eliot Test Pos 05/09/22 15:40 A-a Gradient 36.0 mmHg 05/09/22 15:40 FiO2 21.0 05/09/22 15:40 Blood Gas Comments Pt fady well eb 05/09/22 15:40 Sodium 135 mmol/L (136-145) L 05/11/22 05:04 Corrected Sodium 136 mmol/L (136-145) 05/11/22 05:04 Potassium 4.5 mmol/L (3.5-5.1) 05/11/22 05:04 Chloride 104 mmol/L (98-107) 05/11/22 05:04 Carbon Dioxide 24.8 mmol/L (21-32) 05/11/22 05:04 BUN 22 mg/dL (7-18) H 05/11/22 05:04 Creatinine 0.83 mg/dL (0.55-1.02) 05/11/22 05:04 Est GFR (MDRD) Af Amer > 60 (>60) 05/11/22 05:04 Est GFR (MDRD) Non-Af > 60 (>60) 05/11/22 05:04 Glucose 125 mg/dL (65-99) H 05/11/22 05:04 Calcium 8.2 mg/dL (8.5-10.1) L 05/11/22 05:04 Corrected Calcium 9.0 mg/dL (8.5-10.1) 05/11/22 05:04 Magnesium 2.4 mg/dL (2.0-2.9) 05/10/22 05:16 Total Bilirubin 0.10 mg/dL (0.2-1.0) L 05/11/22 05:04 AST 15 Units/L (15-37) 05/11/22 05:04 ALT 18 Units/L (12-78) 05/11/22 05:04 Alkaline Phosphatase 50 Units/L (46-116) 05/11/22 05:04 Creatine Kinase 25 Units/L (26-192) L 05/11/22 14:10 Troponin I High Sens 6.0 ng/L (4.0-60.0) 05/11/22 14:10 Total Protein 5.7 g/dL (6.4-8.2) L 05/11/22 05:04 Albumin 3.0 g/dL (3.4-5.0) L 05/11/22 05:04 Globulin 2.7 g/dL (2.5-4.5) 05/11/22 05:04 Albumin/Globulin Ratio 1.1 Ratio (1.1-2.1) 05/11/22 05:04 Specimen Type Clean catch urine 05/09/22 15:18 Urine Color Yellow (YELLOW) 05/09/22 15:18 Urine Appearance Clear (CLEAR) 05/09/22 15:18 Urine pH 6.0 (5.0 - 8.0) 05/09/22 15:18 Ur Specific [place] 1.020 (1.000-1.030) 05/09/22 15:18 Urine Protein Negative (NEGATIVE) 05/09/22 15:18 Urine Glucose (UA) Negative (NEGATIVE) 05/09/22 15:18 Urine Ketones Negative (NEGATIVE) 05/09/22 15:18 Urine Blood Negative (NEGATIVE) 05/09/22 15:18 Urine Nitrite Negative (NEGATIVE) 05/09/22 15:18 Urine Bilirubin Negative (NEGATIVE) 05/09/22 15:18 Urine Urobilinogen Normal (NORMAL) 05/09/22 15:18 Ur Leukocyte Esterase Negative (NEGATIVE) 05/09/22 15:18 SARS-CoV-2 (PCR) Negative (NEGATIVE) 05/09/22 13:20 Influenza Type A (PCR) Negative (NEGATIVE) 05/09/22 13:20 Influenza Type B (PCR) Negative (NEGATIVE) 05/09/22 13:20 RSV (PCR) Negative (NEGATIVE) 05/09/22 13:20 Resp Viral Panel (PCR) See scanned report 05/09/22 14:04 - Plan (1) Bronchopneumonia Status: Acute Plan: PNEUMONIA PROTOCOL, CXR AND RESP CONSULT ON ADMISSION. IV ATBX, GENTLE IV HYDRATION. BP CONTROL, SPUTUM CULTURE ON ADMISSION. RESP THERAPY, DDIMER ON ADMISSION, ROOM AIR ABG. LOVENOX PROPHYLAXIS (2) Hypertension Status: Chronic (3) Anxiety Status: Acute
[2022-05-11] MEDS ORDERED: TOPROL XL PO ONE (19:48)
[2022-05-11] MEDS: TOPROL XL PO SCH (20:00)
[2022-05-11] MEDS: ELAVIL PO SCH (20:00)
[2022-05-11] MEDS: NORVASC TAB 5 MG PO SCH (20:00)
[2022-05-12 05:17] LABS: BASOPHILS # (AUTO) 0.1 X10^3/uL (0.0-0.1); BASOPHILS % (AUTO) 1.2 % (0.2-1.0); EOSINOPHILS # (AUTO) 0.1 x10^3/uL (0.0-0.2); EOSINOPHILS % (AUTO) 0.9 % (0.9-2.9); HEMATOCRIT 30.6 % (36.0-47.0); HEMOGLOBIN 10.6 g/dL (12.0-16.0); LYMPHOCYTES # (AUTO) 2.5 X10^3/uL (1.3-2.9); LYMPHOCYTES % (AUTO) 32.4 % (21.0-51.0); MEAN CORPUSCULAR HGB CONC 34.7 g/dL (33.0-35.0); MEAN CORPUSCULAR VOLUME 92.2 fL (80.0-100.0); MEAN PLATELET VOLUME 6.6 fL (7.4-11.0); MONOCYTES # (AUTO) 0.7 x10^3/uL (0.3-0.8); MONOCYTES % (AUTO) 8.7 % (0.0-13.0); NEUTROPHILS # (AUTO) 4.3 x10^3/uL (2.2-4.8); NEUTROPHILS % (AUTO) 56.8 % (42.0-75.0); RED BLOOD COUNT 3.32 X10^6/uL (3.5-5.4); RED CELL DISTRIBUTION WIDTH 13.1 % (11.6-16.5); WHITE BLOOD COUNT 7.6 X10^3/uL (3.6-10.0)
[2022-05-12] MEDS: NS 1,000 ML IV 1,000 ML IV SCH ×2 (05:22→09:40)
[2022-05-12 05:44] LABS: ALANINE AMINOTRANSFERASE 21 Units/L (12-78); ALBUMIN 2.7 g/dL (3.4-5.0); ALKALINE PHOSPHATASE 46 Units/L (46-116); ASPARTATE AMINO TRANSFERASE 17 Units/L (15-37); BLOOD UREA NITROGEN 18 mg/dL (7-18); CALCIUM 7.9 mg/dL (8.5-10.1); CARBON DIOXIDE 25.1 mmol/L (21-32); CHLORIDE 103 mmol/L (98-107); CHOL/HDL RATIO 2.4 (0.0-5.0); CHOLESTEROL 105 mg/dL (0-200); COR CA(FOR HYPOALB) 8.9 mg/dL (8.5-10.1); CREATININE 0.76 mg/dL (0.55-1.02); HDL CHOLESTEROL 44 mg/dL (40-60); SODIUM 134 mmol/L (136-145); TOTAL PROTEIN 5.3 g/dL (6.4-8.2); TRIGLYCERIDES 61 mg/dL (0-150); eGFR NON BLACK RACES > 60 (>60)
--- NOTE | 2022-05-12 07:15 | RAD ---
HISTORYBronchitis, bronchopneumoniaSTUDYChest AP [id number]/25/2023FINDINGSThe heart is enlarged. No congestive heart failure is noted. Aorta is calcified. Aixa are normal. Lung marie are clear. No pleural effusions are identified. Bony thorax is unremarkable.IMPRESSIONCardiomegaly without congestive heart failureNo definite infiltratesElectronically signed by: ORTIZ ROTHMAN (May 12, 2022 07:14:58)
[2022-05-12] MEDS: LEVAQUIN PREMIX IV 500 MG 500 MG/100 ML BAG IV SCH (08:48)
[2022-05-12] MEDS: ZESTRIL TAB 10 MG PO SCH (08:48)
[2022-05-12] MEDS: PROTONIX INJ 40 MG VIAL IVP SCH (08:48)
[2022-05-12] MEDS: ROBITUSSIN DM PO SCH ×2 (08:48→13:12)
[2022-05-12] MEDS: XANAX PO SCH (08:49)
[2022-05-12] MEDS: LOVENOX INJ 40 MG SYR SC SCH (08:49)
[2022-05-12] MEDS: DUONEB 0.5 MG/3 MG (3 mL) NEB SCH ×2 (09:00→13:00)
[2022-05-12] MEDS: PULMICORT NEB TX 0.5 MG NEB SCH (09:00)
[2022-05-12] MEDS ORDERED: PLAVIX PO SCH (09:00)
[2022-05-12 12:05] VITALS: BP 149/67
== END 2022-05-12 15:00 | disposition home or self-care (01) | DRG 194 ==
LOC: MED/SURG 11:29
PROVIDERS: ADMIT Internal Medicine; ATTEND Internal Medicine
DX: R06.02 Shortness of breath; R53.81 Other malaise; R42 Dizziness and giddiness; R79.1 Abnormal coagulation profile; F41.8 Other specified anxiety disorders; M19.90 Unspecified osteoarthritis, unspecified site; B96.89 Other specified bacterial agents as the cause of diseases classified elsewhere; R60.0 Localized edema; R94.31 Abnormal electrocardiogram [ECG] [EKG]; Z20.822 Contact with and (suspected) exposure to COVID-19; E87.1 Hypo-osmolality and hyponatremia; I10 Essential (primary) hypertension; E86.0 Dehydration; J18.0 Bronchopneumonia, unspecified organism

== ENCOUNTER 2023-07-10 11:32 | Inpatient (IN) ==
[2023-07-10] MEDS ORDERED: ZOFRAN INJ 4 MG VIAL IVP PRN (11:56)
--- NOTE | 2023-07-10 13:30 | DR.H&P ---
H&P History & Physical for Day of: H&P Date: 07/10/23 Chief Complaint Chief Complaint: CCC, FEVER, DEHYDRATION Allergies Allergies Allergy/AdvReac Type Severity Reaction Status Date / Time No Known Drug Allergies Allergy Verified 05/21/23 20:47 History of Present Illness History of Present Illness: PT IS 78 WF, DIRECT ADMIT FROM DR FOX OFFICE WITH FEVER, FLU LIKE ILLNESS FOR 4 DAYS WITH CCC AND NAUSEA. PT WAS NEGATIVE FOR FLU/COVID IN OFFICE SWAB. PT HAS PMH OF COPD WITH PRODUCTIVE COUGH, SUDDEN ONSET THEN END OF LAST WEEK. PT CO WEAKNESS AND DEHYDRATED. BP WAS RUNNING LOWER IN THE OFFICE THAN NORMAL, 110/60. PT HAS PMH OF HTN, COPD, OA, GERD, GIOVANNI AND HX CVA. PT ADMITTED FOR EVALUATION AND TREATMENT OF ACUTE ILLNESS. Past Medical History Past Medical History: Anxiety, Arthritis, CVA, GERD and Hypertension Past Surgical History Surgical History: Cholecystectomy, Hysterectomy and Ortho Surgery Family History Family Medical History: CT, Coronary Artery Disease and Hypertension Medications Home Medications: Home Medications Medication Instructions Recorded Confirmed Type meloxicam 15 mg tablet 15 mg PO DAILY PAIN 04/22/19 05/21/23 History oxycodone-acetaminophen 10 mg-325 10 - 325 tab PO Q6H PRN Pain 04/22/19 05/21/23 History mg tablet clonidine HCl 0.1 mg tablet 0.1 mg PO TID PRN 12/22/20 05/21/23 History gabapentin 100 mg capsule 100 mg PO TID PRN 12/22/20 05/21/23 History cetirizine 10 mg tablet (Zyrtec) 10 mg PO DAILY 05/09/22 05/21/23 History alprazolam 0.5 mg tablet 0.5 mg PO BID PRN 05/21/23 05/21/23 History amitriptyline 10 mg tablet 10 mg PO QPM 05/21/23 05/21/23 History clopidogrel 75 mg tablet 75 mg PO QDAY 05/21/23 05/21/23 History donepezil 5 mg tablet 5 mg PO QDAY 05/21/23 05/21/23 History hydrochlorothiazide 25 mg tablet 25 mg PO QDAY 05/21/23 05/21/23 History hydroxyzine HCl 25 mg tablet 25 mg PO QDAY 05/21/23 05/21/23 History lisinopril 20 mg tablet 20 mg PO BID 05/21/23 05/21/23 History meclizine 25 mg tablet 25 mg PO TID PRN 05/21/23 05/21/23 History metoprolol succinate 100 mg 100 mg PO BID 05/21/23 05/21/23 History tablet,extended release 24 hr pantoprazole 40 mg tablet,delayed 40 mg PO QDAY 05/21/23 05/21/23 History release rosuvastatin 20 mg tablet 20 mg PO QPM 05/21/23 05/21/23 History tizanidine 4 mg tablet 4 mg PO BID 05/21/23 05/21/23 History Review of Systems Constitutional: Fever, Chills, Weakness and Malaise Eyes: No Symptoms Reported ENT: No Symptoms Reported Respiratory: Cough and Wheezing Cardiovascular: Edema Gastrointestinal: Nausea Genitourinary: No Symptoms Reported Musculoskeletal: Back Pain Skin: No Symptoms Reported Neurological: Other (HEADACHE) Oriented: Normal Eyes: Normal Ear: Normal Nose: Discharge Throat: Red Respiratory: Wheezes Throughout Cardiovascular: Normal Auscultation: Bowel Sounds: Normal Tenderness: Normal Skin: Decreased Turgur Musculoskeletal: Back:Lumbar Psychiatric: Anxiety Affect: Anxious Speech Pattern: Clear Assessment/Plan (1) COPD with acute bronchitis: Narrative Support Text: ADMIT, IV HYDRATION RESP CONSULT, IV ATBX RESP PANEL ON ADMISSION VERIFY HOME MEDICATIONS CXR ON ARRIVAL I&OS, PRN SUPPLEMENTAL O2 Status: Acute (2) Hypertension: Status: Chronic (3) Dehydration, mild: Status: Acute
[2023-07-10] MEDS: NS 1,000 ML IV 1,000 ML IV SCH (14:19)
[2023-07-10] MEDS: PROTONIX INJ 40 MG VIAL IVP SCH (14:19)
[2023-07-10] MEDS: ZITHROMAX INJ 500 MG VIAL 500 MG in NS 250 ML IV 250 ML IV SCH (14:52)
--- NOTE | 2023-07-10 15:07 | RAD ---
EXAM:CHEST, 1 VIEWHISTORY:Shortness of breathCOMPARISON:06/06/2023FINDINGS:The trachea is midline. The cardiac silhouette is unremarkable . The lungs are clear without focal infiltrate or effusion. The bony thorax is unremarkable.IMPRESSION:No acute cardiopulmonary disease.THIS IS AN ELECTRONICALLY VERIFIED FINAL REPORT07/10/2023 3:03 PM - Electronically signed by Marc Merrill MD
[2023-07-10] MEDS: NICOTINE PATCH TD SCH (16:22)
[2023-07-10 16:34] LABS: BASOPHILS % (AUTO) 0.4 % (0.2-1.0); EOSINOPHILS # (AUTO) 0.1 x10^3/uL (0.0-0.2); HEMATOCRIT 34.1 % (36.0-47.0); HEMOGLOBIN 11.7 g/dL (12.0-16.0); LYMPHOCYTES # (AUTO) 1.2 X10^3/uL (1.3-2.9); LYMPHOCYTES % (AUTO) 10.4 % (21.0-51.0); MEAN CORPUSCULAR HEMOGLOBIN 31.9 pg (27.0-34.0); MEAN CORPUSCULAR HGB CONC 34.3 g/dL (33.0-35.0); MEAN CORPUSCULAR VOLUME 92.9 fL (80.0-100.0); MEAN PLATELET VOLUME 6.6 fL (7.4-11.0); MONOCYTES # (AUTO) 0.8 x10^3/uL (0.3-0.8); MONOCYTES % (AUTO) 6.5 % (0.0-13.0); NEUTROPHILS # (AUTO) 9.8 x10^3/uL (2.2-4.8); NEUTROPHILS % (AUTO) 81.7 % (42.0-75.0); PLATELET COUNT 159 X10^3/uL (150.0-450.0); RED BLOOD COUNT 3.67 X10^6/uL (3.5-5.4); RED CELL DISTRIBUTION WIDTH 14.6 % (11.6-16.5)
[2023-07-10 16:45] LABS: ALANINE AMINOTRANSFERASE 35 Units/L (12-78); ALBUMIN 2.6 g/dL (3.4-5.0); ALKALINE PHOSPHATASE 74 Units/L (46-116); ASPARTATE AMINO TRANSFERASE 36 Units/L (15-37); BLOOD UREA NITROGEN 19 mg/dL (7-18); CALCIUM 8.1 mg/dL (8.5-10.1); CARBON DIOXIDE 29.2 mmol/L (21-32); CHLORIDE 95 mmol/L (98-107); COR CA(FOR HYPOALB) 9.2 mg/dL (8.5-10.1); COR NA(FOR HYPERGLY) 129 mmol/L (136-145); CREATININE 1.07 mg/dL (0.55-1.02); GLUCOSE 158 mg/dL (65-99); POTASSIUM 4.7 mmol/L (3.5-5.1); SODIUM 128 mmol/L (136-145); TOTAL PROTEIN 6.5 g/dL (6.4-8.2); eGFR NON BLACK RACES 53 (>60)
[2023-07-10] MEDS: DUONEB 0.5 MG/3 MG (3 mL) NEB SCH (17:34)
[2023-07-10 17:36] LABS: BILIRUBIN,URINE NEGATIVE (NEGATIVE); BLOOD/HEMOGLOBIN,URINE NEGATIVE (NEGATIVE); GLUCOSE, URINE NEGATIVE (NEGATIVE); KETONES,URINE NEGATIVE (NEGATIVE); LEUKOCYTE ESTERASE ,URINE 1+ (NEGATIVE); NITRITES,URINE NEGATIVE (NEGATIVE); PROTEIN,URINE 1+ (NEGATIVE); UROBILINOGEN,URINE NORMAL (NORMAL)
[2023-07-10 17:46] LABS: APPEARANCE,URINE CLEAR (CLEAR); COLOR,URINE YELLOW (YELLOW)
[2023-07-10 17:49] LABS: BACTERIA,URINE 2+ /HPF (NEGATIVE); RBC,URINE NONE SEEN /HPF (0-3); SQUAMOUS EPITHELIAL CELL,UR FEW /HPF (NEGATIVE)
[2023-07-10] MEDS: ZESTRIL TAB 20 MG PO SCH (20:21)
[2023-07-10] MEDS: TOPROL XL PO SCH (20:21)
[2023-07-10] MEDS: ELAVIL PO SCH (20:21)
[2023-07-10] MEDS: TOPROL XL PO ONE (20:52)
[2023-07-10] MEDS: ZESTRIL TAB 20 MG ONE (20:52)
[2023-07-11 05:38] LABS: BASOPHILS % (AUTO) 0.3 % (0.2-1.0); EOSINOPHILS # (AUTO) 0.2 x10^3/uL (0.0-0.2); EOSINOPHILS % (AUTO) 1.6 % (0.9-2.9); HEMATOCRIT 34.4 % (36.0-47.0); HEMOGLOBIN 11.5 g/dL (12.0-16.0); LYMPHOCYTES # (AUTO) 1.3 X10^3/uL (1.3-2.9); LYMPHOCYTES % (AUTO) 10.9 % (21.0-51.0); MEAN CORPUSCULAR HEMOGLOBIN 31.3 pg (27.0-34.0); MEAN CORPUSCULAR HGB CONC 33.5 g/dL (33.0-35.0); MEAN CORPUSCULAR VOLUME 93.3 fL (80.0-100.0); MEAN PLATELET VOLUME 6.6 fL (7.4-11.0); MONOCYTES # (AUTO) 1.1 x10^3/uL (0.3-0.8); NEUTROPHILS # (AUTO) 9.3 x10^3/uL (2.2-4.8); NEUTROPHILS % (AUTO) 78.2 % (42.0-75.0); PLATELET COUNT 173 X10^3/uL (150.0-450.0); RED BLOOD COUNT 3.69 X10^6/uL (3.5-5.4); RED CELL DISTRIBUTION WIDTH 14.9 % (11.6-16.5); WHITE BLOOD COUNT 11.9 X10^3/uL (3.6-10.0)
[2023-07-11 05:50] LABS: ALANINE AMINOTRANSFERASE 31 Units/L (12-78); ALBUMIN 2.7 g/dL (3.4-5.0); ALKALINE PHOSPHATASE 74 Units/L (46-116); ASPARTATE AMINO TRANSFERASE 29 Units/L (15-37); BLOOD UREA NITROGEN 12 mg/dL (7-18); CALCIUM 8.6 mg/dL (8.5-10.1); CARBON DIOXIDE 25.5 mmol/L (21-32); CHLORIDE 98 mmol/L (98-107); COR CA(FOR HYPOALB) 9.6 mg/dL (8.5-10.1); GLUCOSE 100 mg/dL (65-99); SODIUM 131 mmol/L (136-145); TOTAL PROTEIN 6.9 g/dL (6.4-8.2); eGFR NON BLACK RACES > 60 (>60)
[2023-07-11 05:53] LABS: POTASSIUM 5.1 mmol/L (3.5-5.1)
[2023-07-11] MEDS ORDERED: ZITHROMAX INJ 500 MG VIAL IV ONE (08:19)
[2023-07-11] MEDS: CRESTOR TAB 10 MG PO SCH (08:27)
[2023-07-11] MEDS: PLAVIX PO SCH (08:27)
[2023-07-11] MEDS: ZyrTEC TAB 10 MG PO SCH (08:28)
[2023-07-11] MEDS: NORVASC TAB 5 MG PO SCH (08:28)
[2023-07-11] MEDS: ZESTRIL TAB 20 MG ONE (09:28)
[2023-07-11] MEDS: TOPROL XL PO ONE (09:29)
[2023-07-11] MEDS: LOVENOX INJ 40 MG SYR SC SCH (09:38)
[2023-07-11] MEDS: ROBITUSSIN DM PO PRN (09:57)
[2023-07-11] MEDS: LEVAQUIN PREMIX IV 500 MG 500 MG/100 ML BAG IV SCH (19:19)
[2023-07-11] MEDS ORDERED: ZESTRIL TAB 20 MG ONE (19:53)
[2023-07-11] MEDS ORDERED: TOPROL XL PO ONE (19:53)
[2023-07-11] MEDS: TUSSIONEX PENNKINETIC SUSP PO PRN (20:04)
[2023-07-11] MEDS: ALPRAZOLAM ODT PO PRN (20:08)
[2023-07-12 06:22] LABS: BASOPHILS % (AUTO) 0.3 % (0.2-1.0); EOSINOPHILS # (AUTO) 0.2 x10^3/uL (0.0-0.2); HEMATOCRIT 29.5 % (36.0-47.0); HEMOGLOBIN 10.4 g/dL (12.0-16.0); LYMPHOCYTES # (AUTO) 1.3 X10^3/uL (1.3-2.9); LYMPHOCYTES % (AUTO) 14.3 % (21.0-51.0); MEAN CORPUSCULAR HEMOGLOBIN 32.6 pg (27.0-34.0); MEAN CORPUSCULAR HGB CONC 35.3 g/dL (33.0-35.0); MEAN CORPUSCULAR VOLUME 92.4 fL (80.0-100.0); MEAN PLATELET VOLUME 6.5 fL (7.4-11.0); MONOCYTES # (AUTO) 0.7 x10^3/uL (0.3-0.8); MONOCYTES % (AUTO) 8.1 % (0.0-13.0); NEUTROPHILS # (AUTO) 6.9 x10^3/uL (2.2-4.8); NEUTROPHILS % (AUTO) 75.3 % (42.0-75.0); PLATELET COUNT 172 X10^3/uL (150.0-450.0); RED BLOOD COUNT 3.19 X10^6/uL (3.5-5.4); RED CELL DISTRIBUTION WIDTH 14.6 % (11.6-16.5); WHITE BLOOD COUNT 9.2 X10^3/uL (3.6-10.0)
[2023-07-12 06:26] LABS: ALANINE AMINOTRANSFERASE 29 Units/L (12-78); ALKALINE PHOSPHATASE 60 Units/L (46-116); ASPARTATE AMINO TRANSFERASE 21 Units/L (15-37); BLOOD UREA NITROGEN 8 mg/dL (7-18); CALCIUM 8.1 mg/dL (8.5-10.1); CARBON DIOXIDE 25.5 mmol/L (21-32); CHLORIDE 103 mmol/L (98-107); COR CA(FOR HYPOALB) 9.7 mg/dL (8.5-10.1); COR NA(FOR HYPERGLY) 137 mmol/L (136-145); CREATININE 0.58 mg/dL (0.55-1.02); GLUCOSE 153 mg/dL (65-99); POTASSIUM 4.3 mmol/L (3.5-5.1); SODIUM 136 mmol/L (136-145); TOTAL PROTEIN 5.5 g/dL (6.4-8.2); eGFR NON BLACK RACES > 60 (>60)
--- NOTE | 2023-07-12 08:00 | RAD ---
EXAM: CHEST, 1 VIEW HISTORY: COPD, AB ; CVA, HTN, GERD SX: RADHA, HYST, ORTHO COMPARISON: Prior study or studies were utilized for comparison during interpretation with the most relevant gloria ed 07/10/2023 TECHNIQUE: CHEST, 1 VIEW FINDINGS: Chest: Lines and tubes: None Mediastinum: Cardiac and mediastinal shadow is within normal limits for size and contour. Pulmonary vessels: No pulmonary vascular congestion. Lung marie: No suspicious airspace opacity. Pleura: No effusion. No pneumothorax. Bones and soft tissues: No acute osseous or soft tissue abnormality. IMPRESSION: 1. No acute cardiopulmonary abnormality THIS IS AN ELECTRONICALLY VERIFIED FINAL REPORT 07/12/2023 7:57 AM - Electronically signed by Danielito Rey MD
[2023-07-12] MEDS ORDERED: TOPROL XL PO ONE ×2 (08:26→20:25)
[2023-07-12] MEDS ORDERED: ZESTRIL TAB 20 MG ONE ×2 (08:26→20:25)
[2023-07-12] MEDS: LASIX IVP ONE (09:19)
[2023-07-12] MEDS: K-DUR TAB 20 MEQ PO SCH (09:20)
[2023-07-12] MEDS: PERCOCET TAB 5/325 MG PO PRN (11:25)
[2023-07-12] MEDS: TESSALON PERLES PO PRN (15:02)
[2023-07-12] MEDS: DIFLUCAN 200 MG IV PREMIX* 200 MG/100 ML BAG IV SCH (15:03)
[2023-07-13 05:58] LABS: BASOPHILS # (AUTO) 0.1 X10^3/uL (0.0-0.1); BASOPHILS % (AUTO) 0.7 % (0.2-1.0); EOSINOPHILS # (AUTO) 0.2 x10^3/uL (0.0-0.2); EOSINOPHILS % (AUTO) 2.9 % (0.9-2.9); HEMATOCRIT 29.6 % (36.0-47.0); HEMOGLOBIN 10.4 g/dL (12.0-16.0); LYMPHOCYTES # (AUTO) 1.4 X10^3/uL (1.3-2.9); LYMPHOCYTES % (AUTO) 18.3 % (21.0-51.0); MEAN CORPUSCULAR HEMOGLOBIN 32.2 pg (27.0-34.0); MEAN PLATELET VOLUME 6.8 fL (7.4-11.0); MONOCYTES # (AUTO) 0.8 x10^3/uL (0.3-0.8); MONOCYTES % (AUTO) 9.8 % (0.0-13.0); NEUTROPHILS # (AUTO) 5.4 x10^3/uL (2.2-4.8); NEUTROPHILS % (AUTO) 68.3 % (42.0-75.0); PLATELET COUNT 218 X10^3/uL (150.0-450.0); RED BLOOD COUNT 3.22 X10^6/uL (3.5-5.4); RED CELL DISTRIBUTION WIDTH 14.8 % (11.6-16.5); WHITE BLOOD COUNT 7.9 X10^3/uL (3.6-10.0)
[2023-07-13 06:16] LABS: ALANINE AMINOTRANSFERASE 33 Units/L (12-78); ALBUMIN 2.2 g/dL (3.4-5.0); ALKALINE PHOSPHATASE 62 Units/L (46-116); ASPARTATE AMINO TRANSFERASE 25 Units/L (15-37); BLOOD UREA NITROGEN 7 mg/dL (7-18); CALCIUM 8.4 mg/dL (8.5-10.1); CARBON DIOXIDE 27.8 mmol/L (21-32); CHLORIDE 103 mmol/L (98-107); COR CA(FOR HYPOALB) 9.8 mg/dL (8.5-10.1); CREATININE 0.68 mg/dL (0.55-1.02); GLUCOSE 93 mg/dL (65-99); SODIUM 137 mmol/L (136-145); eGFR NON BLACK RACES > 60 (>60)
[2023-07-13 06:22] LABS: POTASSIUM 4.8 mmol/L (3.5-5.1)
[2023-07-13 06:34] LABS: BAND NEUTROPHILS % 3 % (0-10); PLATELET MORPHOLOGY COMMENT NORMAL (NORMAL)
--- NOTE | 2023-07-13 09:40 | RAD ---
EXAM:CHEST, 1 VIEWHISTORY:BRONCHITIS;COMPARISON:Prior study or studies were utilized for comparison during interpretation with the most relevant dated 07/12/2023TECHNIQUE:CHEST, 1 VIEWFINDINGS:Chest:Lines and tubes: NoneMediastinum: Cardiac and mediastinal shadow is within normal limits for size and contour.Pulmonary vessels: No pulmonary vascular congestion.Lung marie: No suspicious airspace opacity.Pleura: No effusion. No pneumothorax.Bones and soft tissues: No acute osseous or soft tissue abnormality.IMPRESSION:1. No acute cardiopulmonary abnormalityTHIS IS AN ELECTRONICALLY VERIFIED FINAL REPORT07/13/2023 9:30 AM - Electronically signed by Danielito Rey MD
[2023-07-13] MEDS ORDERED: OMNIPAQUE 350 mg/mL 100 mL BTL 100 ML ONE (09:56)
[2023-07-13] MEDS ORDERED: NS 100 ML IV 100 ML ONE (09:56)
[2023-07-13] MEDS: TOPROL XL PO ONE (11:42)
[2023-07-13] MEDS: ZESTRIL TAB 20 MG ONE (11:43)
[2023-07-13] MEDS: SOLU-Medrol 125 MG VIAL IVP ONE (11:51)
--- NOTE | 2023-07-13 12:34 | CT ---
EXAM:CT CHEST WITH IV CONTRASTHISTORY:BRONCHITIS, COUCH SINCE MAY ; HX-COPD -COMPARISON:X-ray from same dayTECHNIQUE:Multiple axial images of the chest were obtained from the thoracic inlet to the upper abdomenfollowing the administration of IV contrast. Sagittal and coronal reformations are performed. Dose reduction techniques including Automated Exposure Control (AEC) and adjustment of mA and kV were utilized.FINDINGS:There is COPD with mild right apical scarring. There are mild interstitial and ground-glass infiltrates in the posterior aspect of the right upper lobe and superior aspect of the right lower lobe. These have a subpleural location. Mild left lower lobe subpleural interstitial densities are seen. Densities could be due to chronic interstitial lung disease rather than pneumonia but consider possible mild interstitial pneumonia.There is no bronchiectasis or bronchial wall thickening. No honeycombing is seen. No mediastinal lymphadenopathy is seen. Heart is top normal limits in size. Coronary artery vascular calcifications are seen. Thoracic aorta is normal in size without evidence of dissection.IMPRESSION:COPD is seen and there are probable mild chronic interstitial lung disease changes. Less likely these changes are due to mild pneumonia.Heart is top normal limits in size.THIS IS AN ELECTRONICALLY VERIFIED FINAL REPORT07/13/2023 12:31 PM - Electronically signed by Vargas Warner MD
[2023-07-13 13:59] VITALS: BP 182/79; PULSE 84; RESP 18; TEMP 97.6; O2SAT 96
--- NOTE | 2023-07-13 14:45 | PCM.DCPLAN ---
DISCHARGE SUMMARY Admission Date Date of Admission: 07/10/23 Discharge Date Discharge Date: 07/13/23 Admission Diagnoses (1) COPD with acute bronchitis: Status: Acute (2) Hypertension: Status: Chronic (3) Dehydration, mild: Status: Acute Discharge Diagnoses Discharge Diagnosis: Same as admission, Resolved dehydration, add heemophilius influenza and oropharyngeal candidiasis Discharge Medications Discharge Medications: Home Medication List amlodipine 5 mg tablet 5 mg PO QDAY 07/10/23 [History] ondansetron HCl 4 mg tablet 4 - 8 mg PO Q6H PRN 07/10/23 [History] fluconazole 100 mg tablet (Diflucan) 100 mg PO QDAY #3 tabs 07/13/23 [Rx] levofloxacin 500 mg tablet 500 mg PO QDAY #5 tabs 07/13/23 [Rx] Prescriptions: fluconazole [Diflucan] YASMEEN,JASON levofloxacin YASMEEN,[facility] Hospital Course Vital Signs: Vital Signs Temperature 97.9 F Pulse Rate [Brachial] 80 Respiratory Rate 18 Respiratory Rate 18 Respiratory Rate 21 Blood Pressure [Right Arm] 140/68 O2 Sat by Pulse Oximetry 95 Latest Lab Results: Laboratory Last Values WBC 7.9 X10^3/uL (3.6-10.0) 07/13/23 05:40 RBC 3.22 X10^6/uL (3.5-5.4) L 07/13/23 05:40 Hgb 10.4 g/dL (12.0-16.0) L 07/13/23 05:40 Hct 29.6 % (36.0-47.0) L 07/13/23 05:40 MCV 92.0 fL (80.0-100.0) 07/13/23 05:40 MCH 32.2 pg (27.0-34.0) 07/13/23 05:40 MCHC 35.0 g/dL (33.0-35.0) 07/13/23 05:40 RDW 14.8 % (11.6-16.5) 07/13/23 05:40 Plt Count 218 X10^3/uL (150.0-450.0) 07/13/23 05:40 Plt Count Comment Adequate (ADEQUATE) 07/13/23 05:40 MPV 6.8 fL (7.4-11.0) L 07/13/23 05:40 Neut % (Auto) 68.3 % (42.0-75.0) 07/13/23 05:40 Lymph % (Auto) 18.3 % (21.0-51.0) L 07/13/23 05:40 [place] % (Auto) 9.8 % (0.0-13.0) 07/13/23 05:40 Eos % (Auto) 2.9 % (0.9-2.9) 07/13/23 05:40 Baso % (Auto) 0.7 % (0.2-1.0) 07/13/23 05:40 Neut # (Auto) 5.4 x10^3/uL (2.2-4.8) H 07/13/23 05:40 Lymph # (Auto) 1.4 X10^3/uL (1.3-2.9) 07/13/23 05:40 [place] # (Auto) 0.8 x10^3/uL (0.3-0.8) 07/13/23 05:40 Eos # (Auto) 0.2 x10^3/uL (0.0-0.2) 07/13/23 05:40 Baso # (Auto) 0.1 X10^3/uL (0.0-0.1) 07/13/23 05:40 Absolute Nucleated RBC 0.0 /100WBC 07/13/23 05:40 Total Counted 100 07/13/23 05:40 Neutrophils % (Manual) 71 % (39-76) 07/13/23 05:40 Band Neutrophils % 3 % (0-10) 07/13/23 05:40 Lymphocytes % (Manual) 20 % (13-43) 07/13/23 05:40 Monocytes % (Manual) 5 % (4-9) 07/13/23 05:40 Eosinophils % (Manual) 1 % (0-6) 07/13/23 05:40 Plt Morphology Comment Normal (NORMAL) 07/13/23 05:40 RBC Morphology Normal (NORMAL) 07/13/23 05:40 Sodium 137 mmol/L (136-145) 07/13/23 05:40 Corrected Sodium TNP 07/13/23 05:40 Potassium 4.8 mmol/L (3.5-5.1) 07/13/23 05:40 Chloride 103 mmol/L (98-107) 07/13/23 05:40 Carbon Dioxide 27.8 mmol/L (21-32) 07/13/23 05:40 BUN 7 mg/dL (7-18) 07/13/23 05:40 Creatinine 0.68 mg/dL (0.55-1.02) 07/13/23 05:40 Est GFR (MDRD) Af Amer > 60 (>60) 07/13/23 05:40 Est GFR (MDRD) Non-Af > 60 (>60) 07/13/23 05:40 Glucose 93 mg/dL (65-99) 07/13/23 05:40 Calcium 8.4 mg/dL (8.5-10.1) L 07/13/23 05:40 Corrected Calcium 9.8 mg/dL (8.5-10.1) 07/13/23 05:40 Magnesium 2.0 mg/dL (2.0-2.9) 07/10/23 16:23 Total Bilirubin 0.30 mg/dL (0.2-1.0) 07/13/23 05:40 AST 25 Units/L (15-37) 07/13/23 05:40 ALT 33 Units/L (12-78) 07/13/23 05:40 Alkaline Phosphatase 62 Units/L (46-116) 07/13/23 05:40 Total Protein 6.0 g/dL (6.4-8.2) L 07/13/23 05:40 Albumin 2.2 g/dL (3.4-5.0) L 07/13/23 05:40 Globulin 3.8 g/dL (2.5-4.5) 07/13/23 05:40 Albumin/Globulin Ratio 0.6 Ratio (1.1-2.1) L 07/13/23 05:40 Specimen Type Clean catch urine 07/10/23 17:00 Urine Color Yellow (YELLOW) 07/10/23 17:00 Urine Appearance Clear (CLEAR) 07/10/23 17:00 Urine pH 6.0 (5.0 - 8.0) 07/10/23 17:00 Ur Specific [place] 1.015 (1.000-1.030) 07/10/23 17:00 Urine Protein 1+ (NEGATIVE) 07/10/23 17:00 Urine Glucose (UA) Negative (NEGATIVE) 07/10/23 17:00 Urine Ketones Negative (NEGATIVE) 07/10/23 17:00 Urine Blood Negative (NEGATIVE) 07/10/23 17:00 Urine Nitrite Negative (NEGATIVE) 07/10/23 17:00 Urine Bilirubin Negative (NEGATIVE) 07/10/23 17:00 Urine Urobilinogen Normal (NORMAL) 07/10/23 17:00 Ur Leukocyte Esterase 1+ (NEGATIVE) 07/10/23 17:00 Urine RBC None seen /HPF (0-3) 07/10/23 17:00 Urine WBC 3-5 /HPF (0-5) 07/10/23 17:00 Ur Squamous Epith Cells Few /HPF (NEGATIVE) 07/10/23 17:00 Urine Bacteria 2+ /HPF (NEGATIVE) 07/10/23 17:00 Ur Culture Indicated? Yes/culture set up 07/10/23 17:00 SARS-CoV-2 (PCR) Negative (NEGATIVE) 07/10/23 15:15 Influenza Type A (PCR) Negative (NEGATIVE) 07/10/23 15:15 Influenza Type B (PCR) Negative (NEGATIVE) 07/10/23 15:15 RSV (PCR) Negative (NEGATIVE) 07/10/23 15:15 Resp Viral Panel (PCR) See scanned report 07/10/23 14:38 Hospital Course: This is a 78-year-old white female admitted on 07/10/23 with bronchitis with a history of chronic obstructive pulmonary disease having failed outpatient treatment. Upon admission, labs revealed hyponatremia. She was started on IV hydration. She complained of nausea upon admission and was treated with Zofran, ppi therapy. As nausea improved, we started her on some antitussive medications to help with her productive cough. Patient home medications resumed upon admission. Patient has degenerative disc disease with chronic pain, requiring director long term care pain control. Also has hypertension and is on hypertensive medications. AIT respiratory swab was positive for haemophilius influenza and she was started on Levaquin per sensitivity results. Sputum culture preliminary showed rare yeast with normal kirsten and she was started on Diflucan. She had a chest xray on 07/12/23 that showed no acute cardiopulmonary abnormality. We did add solumedrol this morning and obtained a CT of chest with contrast that showed chronic interstitial lung disease without acute findings. Morning labs: wbc 7.9, hgb 10.4, sodium to 137 (128 on admission), bun 7/creatinine 0.68. AM vitals: 140/68-80-21-97.9-95% on 2L NC. Patient states that she is feeling much improved, so we will allow the patient to discharge home on PO levaquin and diflucan. She will need to follow up with her primary care provider. She has an appointment scheduled for 07/18/23 at 2:45PM. Please see discharge plan for list of discharge medications and modifications that we made, electronic medical record for diagnostic tests and labs. The patient was instructed to return to the ER if condition changed or worsened unexpectedly.
--- NOTE | 2023-07-13 14:45 | PCM.PROG ---
Progress Note Progress Note for Day of Date of Exam: 07/12/23 Subjective Subjective: This is a 78-year-old white female admitted on 07/10/23 with bronchitis with a history of chronic obstructive pulmonary disease having failed outpatient treatment. Upon admission, labs revealed hyponatremia. She was started on IV hydration. She complained of nausea upon admission and has been treated with Zofran, ppi therapy. Nausea was improved yesterday, so we did start her on some antitussive medications to help with her productive cough. Patient home medications resumed upon admission. Patient has degenerative disc disease with chronic pain, requiring penitentiary pain control. Also has hypertension and is on hypertensive medications. AIT respiratory swab was positive for haemophili us influenza yesterday and started on Levaquin per sensitivity results. Sputum culture preliminary back this morning and showed rare yeast with normal kirsten. We will pharmacy consult for diflucan. Urine culture back this morning and continues to show no growth on day 2. We obtained a chest xray this morning that showed no acute cardiopulmonary abnormality. Morning labs: wbc 9.2, hgb 10.4, sodium to 136 (128 on admission), bun 8/creatinine 0.58. AM vitals: 141/65-78-20-97.4-95% on 2L NC. Past Medical Family Social History Allergies: Allergies No Known Drug Allergies Allergy (Verified 05/21/23 20:47) Vital Signs and I&O's Vital Signs: Vital Signs Temperature 98.1 F Temperature 97.5 F Pulse Rate [Brachial] 72 Pulse Rate [Brachial] 77 Respiratory Rate 16 Respiratory Rate 20 Respiratory Rate 20 Respiratory Rate 20 Blood Pressure [Right Arm] 146/67 Blood Pressure [Right Arm] 142/60 O2 Sat by Pulse Oximetry 95 O2 Sat by Pulse Oximetry 93 Intake and Output: Intake & Output 07/10/23 07/11/23 07/12/23 07/13/23 11:59 11:59 11:59 11:59 Intake Total 1721 / 1721 2169 / 2169 756 / 756 Output Total Balance 1719 / 1719 2169 / 2169 756 / 756 Physical Exam Oriented: Normal Eyes: Normal Ear: Normal Nose: Discharge Throat: Red Respiratory: Diminished, Wheezes and Rhonchi Cardiovascular: Edema (trace lower extremity edema) Auscultation: Bowel Sounds: Normal Tenderness: Normal Skin: Decreased Turgur Musculoskeletal: Back:Lumbar Psychiatric: Anxiety Affect: Anxious Speech Pattern: Clear and Appropriate Laboratory and Diagnostics 07/13/23 05:40 07/13/23 05:40 Labs: 07/10/23 20:21 Sputum - Expectorated Sputum Sputum Culture - Preliminary 07/10/23 20:21 Sputum - Expectorated Sputum - Final 07/10/23 17:00 Urine,Clean Catch Urine Culture - Final Laboratory WBC 9.2 X10^3/uL (3.6-10.0) 07/12/23 05:44 RBC 3.19 X10^6/uL (3.5-5.4) L 07/12/23 05:44 Hgb 10.4 g/dL (12.0-16.0) L 07/12/23 05:44 Hct 29.5 % (36.0-47.0) L 07/12/23 05:44 MCV 92.4 fL (80.0-100.0) 07/12/23 05:44 MCH 32.6 pg (27.0-34.0) 07/12/23 05:44 MCHC 35.3 g/dL (33.0-35.0) H 07/12/23 05:44 RDW 14.6 % (11.6-16.5) 07/12/23 05:44 Plt Count 172 X10^3/uL (150.0-450.0) 07/12/23 05:44 MPV 6.5 fL (7.4-11.0) L 07/12/23 05:44 Neut % (Auto) 75.3 % (42.0-75.0) H 07/12/23 05:44 Lymph % (Auto) 14.3 % (21.0-51.0) L 07/12/23 05:44 [place] % (Auto) 8.1 % (0.0-13.0) 07/12/23 05:44 Eos % (Auto) 2.0 % (0.9-2.9) 07/12/23 05:44 Baso % (Auto) 0.3 % (0.2-1.0) 07/12/23 05:44 Neut # (Auto) 6.9 x10^3/uL (2.2-4.8) H 07/12/23 05:44 Lymph # (Auto) 1.3 X10^3/uL (1.3-2.9) 07/12/23 05:44 [place] # (Auto) 0.7 x10^3/uL (0.3-0.8) 07/12/23 05:44 Eos # (Auto) 0.2 x10^3/uL (0.0-0.2) 07/12/23 05:44 Baso # (Auto) 0.0 X10^3/uL (0.0-0.1) 07/12/23 05:44 Absolute Nucleated RBC 0.0 /100WBC 07/12/23 05:44 Sodium 136 mmol/L (136-145) 07/12/23 05:44 Corrected Sodium 137 mmol/L (136-145) 07/12/23 05:44 Potassium 4.3 mmol/L (3.5-5.1) 07/12/23 05:44 Chloride 103 mmol/L (98-107) 07/12/23 05:44 Carbon Dioxide 25.5 mmol/L (21-32) 07/12/23 05:44 BUN 8 mg/dL (7-18) 07/12/23 05:44 Creatinine 0.58 mg/dL (0.55-1.02) 07/12/23 05:44 Est GFR (MDRD) Af Amer > 60 (>60) 07/12/23 05:44 Est GFR (MDRD) Non-Af > 60 (>60) 07/12/23 05:44 Glucose 153 mg/dL (65-99) H 07/12/23 05:44 Calcium 8.1 mg/dL (8.5-10.1) L 07/12/23 05:44 Corrected Calcium 9.7 mg/dL (8.5-10.1) 07/12/23 05:44 Magnesium 2.0 mg/dL (2.0-2.9) 07/10/23 16:23 Total Bilirubin 0.20 mg/dL (0.2-1.0) 07/12/23 05:44 AST 21 Units/L (15-37) 07/12/23 05:44 ALT 29 Units/L (12-78) 07/12/23 05:44 Alkaline Phosphatase 60 Units/L (46-116) 07/12/23 05:44 Total Protein 5.5 g/dL (6.4-8.2) L 07/12/23 05:44 Albumin 2.0 g/dL (3.4-5.0) L 07/12/23 05:44 Globulin 3.5 g/dL (2.5-4.5) 07/12/23 05:44 Albumin/Globulin Ratio 0.6 Ratio (1.1-2.1) L 07/12/23 05:44 Specimen Type Clean catch urine 07/10/23 17:00 Urine Color Yellow (YELLOW) 07/10/23 17:00 Urine Appearance Clear (CLEAR) 07/10/23 17:00 Urine pH 6.0 (5.0 - 8.0) 07/10/23 17:00 Ur Specific [place] 1.015 (1.000-1.030) 07/10/23 17:00 Urine Protein 1+ (NEGATIVE) 07/10/23 17:00 Urine Glucose (UA) Negative (NEGATIVE) 07/10/23 17:00 Urine Ketones Negative (NEGATIVE) 07/10/23 17:00 Urine Blood Negative (NEGATIVE) 07/10/23 17:00 Urine Nitrite Negative (NEGATIVE) 07/10/23 17:00 Urine Bilirubin Negative (NEGATIVE) 07/10/23 17:00 Urine Urobilinogen Normal (NORMAL) 07/10/23 17:00 Ur Leukocyte Esterase 1+ (NEGATIVE) 07/10/23 17:00 Urine RBC None seen /HPF (0-3) 07/10/23 17:00 Urine WBC 3-5 /HPF (0-5) 07/10/23 17:00 Ur Squamous Epith Cells Few /HPF (NEGATIVE) 07/10/23 17:00 Urine Bacteria 2+ /HPF (NEGATIVE) 07/10/23 17:00 Ur Culture Indicated? Yes/culture set up 07/10/23 17:00 SARS-CoV-2 (PCR) Negative (NEGATIVE) 07/10/23 15:15 Influenza Type A (PCR) Negative (NEGATIVE) 07/10/23 15:15 Influenza Type B (PCR) Negative (NEGATIVE) 07/10/23 15:15 RSV (PCR) Negative (NEGATIVE) 07/10/23 15:15 Resp Viral Panel (PCR) See scanned report 07/10/23 14:38 Plan (1) COPD with acute bronchitis: Status: Acute Plan: Start diflucan, IV Lasix/potassium x1dose for increased edema, PT consult. Continue IV antibiotics, respiratory therapy, supplemental O2, pulmonary toileting, blood pressure/pain control, antitussives &antiemetic prn. (2) Hypertension: Status: Chronic (3) Dehydration, mild: Status: Acute
== END 2023-07-13 13:50 | disposition home or self-care (01) | DRG 202 ==
LOC: MED/SURG → OBSVTOIN 13:25
PROVIDERS: ADMIT Internal Medicine; ATTEND Internal Medicine
DX: K21.9 Gastro-esophageal reflux disease without esophagitis; R06.02 Shortness of breath; J44.9 Chronic obstructive pulmonary disease, unspecified; R60.0 Localized edema; E86.0 Dehydration; B37.0 Candidal stomatitis; R26.89 Other abnormalities of gait and mobility; E87.1 Hypo-osmolality and hyponatremia; I10 Essential (primary) hypertension; J44.0 Chronic obstructive pulmonary disease with (acute) lower respiratory infection; J20.8 Acute bronchitis due to other specified organisms; F41.8 Other specified anxiety disorders; Z20.822 Contact with and (suspected) exposure to COVID-19; B96.3 Hemophilus influenzae [H. influenzae] as the cause of diseases classified elsewhere; R53.1 Weakness; Z86.73 Personal history of transient ischemic attack (TIA), and cerebral infarction without residual deficits